=== PATIENT | female | born 1960 | race Caucasian/White ===

== ENCOUNTER 2017-01-17 02:52 | Emergency (ER) | payer BC ==
[~2017-01-17] VITALS: Ht 177.8 cm; Wt 101.2 kg
[~2017-01-17 02:52] MED LIST: FLAGYL500 MG PO; LEVAQUIN500 MG PO; PERCOCET 5/31 TABLET PO
[2017-01-17 03:01] VITALS: BP 137/87
== END 2017-01-17 04:31 | disposition left against medical advice (07) ==
LOC: EME 02:52
DX: L50.9 Urticaria, unspecified (principal); Z53.21 Procedure and treatment not carried out due to patient leaving prior to being seen by health care provider